=== PATIENT | female | born 1990 | race Caucasian/White ===

== ENCOUNTER 2020-03-03 11:27 | Outpatient (CLI) | payer BC, SELFPAY ==
--- NOTE | ~2020-03-03 | XR_ITS ---
EXAMINATION: XR hysterosalpingogram DATE: 03/03/2020 12:13 INDICATION: Infertility TECHNIQUE: Multiple fluoroscopic images were obtained during contrast infusion into the endometrial c anal of the uterus by the primary physician. Fluoroscopy exposure time was 0.3 minutes. A total of 6 images were obtained. FINDINGS: Flight Director image demonstrates a T-shaped IUD projecting over the upper pelvis which based on subsequent im ages is external to the uterus. The uterine cavity demonstrates normal morphology. The left fallopia n tube is normal in caliber and patent. The right fallopian tube appears irregularly dilated peripher al to the cornua but patent. There is normal spillage of contrast into the peritoneum on both sides. Comparison the endometrial extravasation of contrast with subsequent drainage via parametrial vessels and into the left gonadal vein. IMPRESSION: 1. Normal left fallopian tube and irregularly dilated but patent right fallopian tube with peritoneal spillage seen bilaterally. 2. IUD in the more cephalad pelvis external to the uterus. Reviewed, dictated and finalized at location A. IMPRESSION: 1. Normal left fallopian tube and irregularly dilated but patent right fallopia n tube with peritoneal spillage seen bilaterally. 2. IUD in the more cephalad pelvis external to the uterus.
== END 2020-03-03 11:28 | disposition home or self-care (01) ==
PROVIDERS: PCP Family Medicine; Visit Provider Obstetrics & Gynecology
DX: N97.9 Female infertility, unspecified (principal); Z97.5 Presence of (intrauterine) contraceptive device
CPT/HCPCS: 58340; 74740; Q9966

== ENCOUNTER 2020-03-10 05:57 | Outpatient (CLI) | payer BC, SELFPAY ==
[2020-03-10 16:38] LABS: SARS-CoV-2 RNA PCR Negative
== END 2020-03-10 05:58 | disposition home or self-care (01) ==
LOC: ANHCOVIDDT 05:57
PROVIDERS: PCP Family Medicine; Visit Provider Obstetrics & Gynecology
DX: Z01.818 Encounter for other preprocedural examination (principal); Z11.59 Encounter for screening for other viral diseases
CPT/HCPCS: 87635; C9803; U0003

== ENCOUNTER 2020-03-10 08:03 | Outpatient (CLI) | payer BC, SELFPAY | END 2020-03-10 08:04 | disposition home or self-care (01) | LOC: ANHSURGERY 08:04 | PROVIDERS: PCP Family Medicine; Visit Provider Obstetrics & Gynecology | DX: Z98.890 Other specified postprocedural states (principal) | CPT/HCPCS: 36415; 86850; 86900; 86901; 87635; C9803; U0003 ==

== ENCOUNTER 2020-03-12 00:42 | Day surgery (SDC) | payer BC, SELFPAY ==
[2020-03-08 15:30] VITALS: BMI 25.9
--- NOTE | 2020-03-10 06:47 | PM.IMHP ---
H&P: HPI History of Present Illness Chief complaint: lost IUD Narrative: Roseline Agudelo is a 29 year old female Who is admitted for laparoscopic removal of lost IUD. Many years ago she lost an IUD. She had 1 replaced in the meantime which was then later removed. During the hysterosalpingogram the x-ray noted the IUD to be in the abdomen behind the uterus. Risks and benefits of laparoscopy review Review of Systems Review of Systems: All systems reviewed & are unremarkable except as noted in HPI and below PMFSH Family History Family History Grandparent Diabetes mellitus Family history of malignant neoplasm of breast Social History Social History Smoking status: Never smoker Alcohol intake: never Meds Home Medications and Allergies Home Medications Medication Instructions Recorded Confirmed Type levocetirizine 5 mg tablet 5 mg PO DAILY #90 tablet 12/03/19 03/08/20 Rx B Complex-Vitamin B12 03/08/20 History estradiol-progesterone cap 03/08/20 History fish zay-mwrgj-6-vit C-vit E g PO 03/08/20 History letrozole [Femara] 2.5 mg PO TID 03/08/20 03/08/20 History magnesium 200 mg PO DAILY 03/08/20 03/08/20 History montelukast mg 03/08/20 History ytsmxprubfkt-tju-fsan-FA-vit K tablet PO 03/08/20 History [Adults Multivitamin] eay-wtk07-vvassri96-mcvj-zgdz ps-om3-dha cap PO 03/08/20 History [Concept DHA] Allergies Allergy/AdvReac Type Severity Reaction Status Date / Time mold Allergy Severe Anaphylactic Verified 03/08/20 15:35 Shock sumatriptan Allergy Intermediate hallucinati Verified 03/08/20 15:36 ons Exam Const: General: no acute distress Eyes: General: appearance normal, both eyes and all related structures Neck: Neck: supple and no JVD Thyroid: thyroid normal Resp: Effort & Inspection: normal respiratory effort Auscultation: clear to auscultation bilaterally Cardio: Rate: regular rate Rhythm: regular rhythm GI: Inspection: non-distended GI Palp: Yes Soft to palpation, No Tenderness to palpation present (GI) and No Guarding due to palpation present (GI) Auscultation: normal bowel sounds : General: Yes bladder normal to palpation External Female Exam: normal external appearance Speculum Exam - Vagina: normal vaginal discharge and No vaginal bleeding Speculum Exam - Cervix: nontender Bimanual exam- vagina & uterus: bladder normal to palpation and No Cervical tenderness present OB/external & speculum: No vaginal bleeding Skin: General skin exam: no rashes or lesions noted Extrem: General: normal to inspection and no edema Psych: Mental Status: mental status grossly normal Affect: normal affect Assessment and Plan Additional Plan impression: Lost IUD Plan: Laparoscopic retrieval of lost IUD
[2020-03-12] VITALS (10 sets, daily range): BP systolic 101–118; BP diastolic 70–80; PULSE 65–77; RESP 12–22; TEMP 36.1–37.1; O2SAT 97–100
--- NOTE | 2020-03-12 06:45 | WPDHPUPDATE1 ---
History and Physical Update Update Date/Time: 03/12/20 06:45 History and Physical has been reviewed, including an updated exam of the patient. There are NO changes in the patient's condition. Risks, benefits, and alternatives have been discussed and questions answered. Patient agrees to proceed with procedure.
[2020-03-12] MEDS: LACTATED RINGERS 1,000 ML 30 ML IV CONT (11:00)
--- NOTE | 2020-03-12 11:33 | WPDANESEPPF ---
Anes - Initial Pre Proc Eval Procedure: Operation Date: 03/12/20 12:00 Proposed Procedures p Laparoscopic Intrauterine Device Removal - Darci Nichols MD Date/Time: 03/12/20 11:33 Surgeon: Darci Nichols MD Pre Op Diagnosis: lost IUD Patient Data Age: 29 Gender: F Height: 5 ft 6 in Weight: 72.72 kg Last Vital Signs Temp 98.7 F 03/12/20 11:30 Pulse 65 03/12/20 11:30 Resp 20 03/12/20 11:30 BP 106/73 03/12/20 11:30 Pulse Ox 98 03/12/20 11:30 Allergies Allergy/AdvReac Type Severity Reaction Status Date / Time mold Allergy Severe Anaphylactic Verified 03/08/20 15:35 Shock sumatriptan Allergy Intermediate hallucinati Verified 03/08/20 15:36 ons Home Medications Medication Instructions Recorded Confirmed Type levocetirizine 5 mg tablet 5 mg PO DAILY #90 tablet 12/03/19 03/08/20 Rx B Complex-Vitamin B12 03/08/20 History estradiol-progesterone cap 03/08/20 History fish dpx-qfqqh-4-vit C-vit E g PO 03/08/20 History letrozole [Femara] 2.5 mg PO TID 03/08/20 03/08/20 History magnesium 200 mg PO DAILY 03/08/20 03/08/20 History montelukast mg 03/08/20 History edytwdxwdtov-yxq-tgud-FA-vit K tablet PO 03/08/20 History [Adults Multivitamin] nky-axd21-nfqyxir92-ucam-pjte ps-om3-dha cap PO 03/08/20 History [Concept DHA] hydrocodone-acetaminophen [[place]] 1 tablet PO Q4H PRN #20 tablet 03/12/20 Rx Patient hx anesthesia problems: none Family hx anesthesia problems: none PMFSH Past Medical History Medical History (Updated 03/12/20 @ 11:19 by Rajan Montgomery MD) Healthy adult Family History Family History Grandparent Diabetes mellitus Family history of malignant neoplasm of breast Social History Social History Smoking status: Never smoker Alcohol intake: never Anes - Eval Final PreProcedure Day of Procedure 03/12/20 11:33 Patient weight: normal Heart: regular rate and rhythm Lungs: clear to auscultation Airway: Mallampati scale class II Neurological: alert and oriented Last oral intake: >/= 8 hours ASA classification: I Emergent: no Anesthetic plan: proceed Anesthesia type and monitoring: general ETT and standard monitoring Informed Consent: The patient's anesthetic plan and its attendant risks and benefits were discussed with the patient/family/POA. Questions were solicited and answers provided to the satisfaction of the patient/family/POA.
[2020-03-12] MEDS: KETOROLAC 30 MG/ML VIAL (*BKC) IV PUSH (12:13)
--- NOTE | 2020-03-12 12:18 | PM.PROC ---
Procedure Note - Detailed Date of procedure: 03/12/20 Pre-op diagnosis: lost IUD Surgeon: Darci Nichols MD Postop diagnosis: Lost IUD Procedure: Laparoscopic retrieval of lost IUD Anesthesia: General endotracheal EBL: 5cc Findings: Lost IUD entangled in omentum. Normal-appearing ovaries tubes and uterus. Normal-appearing appendix Complications: None Description of procedure: Patient was prepped draped in the normal sterile fashion placed in the dorsal lithotomy position. Under excellent general endotracheal anesthesia weighted speculum was placed in posterior fornix of vagina. Anterior lip of the cervix was grasped with a single-tooth tenaculum. The 2 were attached to be used later for uterine manipulation. Bladder was emptied of clear urine. Gloves were changed. An infraumbilical incision made. Veress needle passed in the abdomen. Abdomen filled with CO2 gas [id number]. The 5mm trocar was advanced abdomen under direct visualization and no injury seen. Patient placed in Trendelenburg and a suprapubic incision made. The 5mm trocar advanced under direct visualization. The above findings were seen the IUD was intact cold and L omentum as expected. A left lower quadrant incision made the 5mm trocar advanced under direct visualization assuring no injury. The IUD was then teased away from the omentum with no blood loss. The remainder of the pelvis appeared within normal limits and photo documentation was undertaken. The lower sites removed after gas removed from the abdomen. The upper site removed. The incisions closed with 4 O Monocryl and glue. All sponge, needle, instrument counts were correct. Patient went to recovery in satisfactory condition. There were no immediate complications noted
== END 2020-03-12 15:00 | disposition home or self-care (01) ==
PROVIDERS: PCP Family Medicine; Visit Provider Obstetrics & Gynecology
PROC: (CPT 49320; principal; 2020-03-12 12:00)
DX: T83.32XA Displacement of intrauterine contraceptive device, initial encounter (principal); Y84.8 Other medical procedures as the cause of abnormal reaction of the patient, or of later complication, without mention of misadventure at the time of the procedure
CPT/HCPCS: 49329; A9270; J1100; J1885; J2250; J2405; J2704; J2710; J3010; J7120

== ENCOUNTER 2021-01-24 20:55 | Observation (INO) | payer OTHER, SELFPAY ==
[2021-01-24 21:20] VITALS: BP 115/82; PULSE 74; PULSE 80; PULSE 83; RESP 18; TEMP 36.8; O2SAT 98; O2SAT 99; BMI 28.6
[2021-01-24 21:25] VITALS: PULSE 75; O2SAT 98
[2021-01-24 21:30] VITALS: BP 114/78; PULSE 85; PULSE 88; O2SAT 99
[2021-01-24 21:35] VITALS: PULSE 87; O2SAT 99
[2021-01-24 21:40] VITALS: PULSE 91; O2SAT 99
[2021-01-24 21:45] VITALS: PULSE 76; O2SAT 98
--- NOTE | 2021-01-24 22:09 | OBADM ---
This patient, Roseline Agudelo, admitted to the OB room Labor/Delivery/Recovery 106 for observation. Patient/family oriented to hospital policies and general routines including ID bracelet, bed and alarms, visiting hours, pain management, procedures, bathroom and other care routines, personal items, smoking policy, room service/diet, and visiting hours. Patient/Family are encouraged to report perceived risks to care and to ask questions if they do not understand what they are told or what they should do.
--- NOTE | 2021-02-13 09:06 | PM.OBTRLD ---
OB - Triage/Final Diagnosis Visit Information Comments/Additional reasons for admission: I have assessed the risk for this patient, Roseline Agudelo, and determined that she would benefit from observation care. Final Diagnosis (1) Vaginal discharge during : Code(s): O26.899 - Other specified related conditions, unspecified trimester; N89.8 - Other specified noninflammatory disorders of vagina Status: Acute
== END 2021-01-24 22:00 | disposition home or self-care (01) ==
PROVIDERS: Admitting Provider Obstetrics & Gynecology; PCP Family Medicine; Visit Provider Obstetrics & Gynecology
DX: O26.892 Other specified pregnancy related conditions, second trimester (principal); N89.8 Other specified noninflammatory disorders of vagina; Z3A.14 14 weeks gestation of pregnancy
CPT/HCPCS: 84112; G0378; G0379

== ENCOUNTER 2021-02-04 07:07 | Inpatient (IN) | payer OTHER, SELFPAY ==
[2021-02-04] VITALS (58 sets, daily range): BP systolic 92–150; BP diastolic 57–98; PULSE 64–117; RESP 16; TEMP 36.6–36.8; O2SAT 97–100; BMI 28.6
--- NOTE | 2021-02-04 07:07 | LDADM ---
This patient, Roseline Agudelo, was admitted to Labor/Delivery/Recovery 103 on 02/04/21 at 07:07. Plans for labor, pain management and were discussed with patient. Patient/family oriented to hospital policies and general routines including ID bracelet, bed and alarms, visiting hours, pain management, procedures, bathroom and other care routines, personal items, smoking policy, room service/diet and guest tray routines, infant security routines, and visiting hours. Patient/Family are encouraged to report perceived risks to care and to ask questions if they do not understand what they are told or what they should do. See OBIX for further documentation.
--- NOTE | 2021-02-04 07:14 | PM.IMHP ---
H&P: HPI History of Present Illness Date/Time: 02/04/21 07:14 30-year-old 2 para 1011 whose last menstrual period was 05/07/2020, EDC is 02/11/2021, presents at 39 weeks gestation for induction labor. Baby has a left hydronephrosis is been followed stable. Geotechnical Engineering Technician will be made aware. The cervix is favorable. is of with gated. Chief Complaint: iol Review of Systems Review of Systems: All systems reviewed & are unremarkable except as noted in HPI and below PMFSH Past Medical History Medical History Chronic migraine w/o aura w/o status migrainosus, not intractable Healthy adult IUD mechanical complication lost IUD. laparoscopically removed from omentum. Martin's neuroma of left foot Recurrent maxillary sinusitis Family History Family History Grandparent Diabetes mellitus Family history of malignant neoplasm of breast Acute myocardial infarction Social History Social History Smoking status: Former smoker Alcohol intake: never Substance use: never Sexual Orientation (if Verbalized by the Patient): Straight or Heterosexual Spiritual care concerns: No Meds Home Medications and Allergies Home Medications Medication Instructions Recorded Confirmed Type Adults Multivitamin tablet PO 03/08/20 11/17/20 History fish jam-mukxj-4-vit C-vit E g PO 03/08/20 11/17/20 History magnesium 200 mg PO DAILY 03/08/20 11/17/20 History levocetirizine 5 mg tablet 5 mg PO DAILY #90 tablet 11/17/20 11/17/20 Rx montelukast 10 mg tablet See Rx Instructions .ROUTE 11/17/20 11/17/20 Rx .COMPLEX #90 tablet Allergies Allergy/AdvReac Type Severity Reaction Status Date / Time mold Allergy Severe Anaphylactic Verified 11/17/20 14:54 Shock sumatriptan AdvReac hallucinati Verified 11/17/20 15:09 ons Exam Const: General: no acute distress Eyes: General: appearance normal, both eyes and all related structures Neck: Neck: supple and no JVD Thyroid: thyroid normal Resp: Effort & Inspection: normal respiratory effort Auscultation: clear to auscultation bilaterally Cardio: Rate: regular rate Rhythm: regular rhythm GI: Inspection: non-distended GI Palp: Yes Soft to palpation, No Tenderness to palpation present (GI) and No Guarding due to palpation present (GI) Auscultation: normal bowel sounds : External Female Exam: normal external appearance Speculum Exam - Vagina: normal appearance of the vagina Speculum Exam - Cervix: normal appearance of the cervix ( Cervix 4cm. heart tones reassuring) Skin: General skin exam: no rashes or lesions noted Extrem: General: normal to inspection and no edema Psych: Mental Status: mental status grossly normal Affect: normal affect Assessment and Plan Additional Plan impression: Term with favorable cervix Plan: Menopausal labor. Spontaneous vaginal of expected. Pediatricians we made aware of pyelectasis
--- NOTE | 2021-02-04 07:17 | WPDHPUPDATE1 ---
History and Physical Update Update Date/Time: 02/04/21 07:17 History and Physical has been reviewed, including an updated exam of the patient. There are NO changes in the patient's condition. Risks, benefits, and alternatives have been discussed and questions answered. Patient agrees to proceed with procedure.
[2021-02-04] MEDS: LACTATED RINGERS 1,000 ML 125 ML IV CONT ×2 (07:46→08:32)
[2021-02-04] MEDS: OXYTOCIN 30 UNITS/NS 500 ML 30 UNITS/500 ML BAG IV CONT (07:47)
[2021-02-04 07:54] LABS: Basophils Percent Auto 0.3 % (0.2-1.2); Eosinophils Absolute Auto 0.1 K/mm3 (0-0.3); Eosinophils Percent Auto 0.8 % (0-4.4); Hematocrit 35.7 % (37.0-47.0); Hemoglobin 11.8 g/dL (12.0-15.0); Immature Granulocyte Absolute 0.02 K/mm3 (0.00-0.031); Immature Granulocyte Percent A 0.3 % (0-0.5); Immature Platelet Fraction Pct 19.5 % (0.9-11.2); Lymphocytes Percent Auto 23.2 % (18.3-44.2); Mean Corpuscular HGB Conc 33.1 g/dl (32-36); Mean Corpuscular Hemoglobin 26.7 pg (26-34); Mean Corpuscular Volume 80.8 fl (80-100); Mean Platelet Volume 14.2 fl (7.4-10.4); Monocytes Absolute Auto 0.4 K/mm3 (0.1-0.6); Monocytes Percent Auto 5.8 % (2.6-8.5); Neutrophils Absolute Auto 4.2 K/mm3 (1.3-6.7); Neutrophils Percent Auto 69.6 % (45.5-73.1); Platelet Count Result 129 k/mm3 (150-375); Red Blood Count 4.42 M/mm3 (4.2-5.4); Red Cell Distribution Width 12.2 % (11.5-14.5)
--- NOTE | 2021-02-04 08:44 | WPDANESEPP ---
Anes - Eval Pre Procedure Procedure: Labor Epidural Date/Time: 02/04/21 08:44 Surgeon: Will Preop Diagnosis: Labor Pain Pre Op Diagnosis: induction of labor Patient Data Age: 30 Gender: F Height: 5 ft 5 in Weight: 78 kg Last Vital Signs Temp 36.6 C 02/04/21 07:24 Pulse 88 02/04/21 08:42 BP 97/66 L 02/04/21 08:42 Pulse Ox 97 02/04/21 08:42 Allergies Allergy/AdvReac Type Severity Reaction Status Date / Time mold Allergy Severe Anaphylactic Verified 02/04/21 07:26 Shock sumatriptan AdvReac hallucinati Verified 02/04/21 07:26 ons Home Medications Medication Instructions Recorded Confirmed Type Adults Multivitamin tablet PO 03/08/20 11/17/20 History fish zgb-hjtzj-8-vit C-vit E g PO 03/08/20 11/17/20 History magnesium 200 mg PO DAILY 03/08/20 02/04/21 History levocetirizine 5 mg tablet 5 mg PO DAILY #90 tablet 11/17/20 02/04/21 Rx montelukast 10 mg tablet See Rx Instructions .ROUTE 11/17/20 02/04/21 Rx .COMPLEX #90 tablet Laboratory Tests 02/04/21 02/04/21 07:43 07:43 WBC 6.0 K/mm3 K/mm3 (4.5-10.0) RBC 4.42 M/mm3 M/mm3 (4.2-5.4) Hgb 11.8 g/dL L g/dL (12.0-15.0) Hct 35.7 % L % (37.0-47.0) MCV 80.8 fl fl (80-100) MCH 26.7 pg pg (26-34) MCHC 33.1 g/dl g/dl (32-36) RDW 12.2 % % (11.5-14.5) Plt Count 129 k/mm3 L k/mm3 (150-375) MPV 14.2 fl H fl (7.4-10.4) Immature Gran % (Auto) 0.3 % % (0-0.5) Neut % (Auto) 69.6 % % (45.5-73.1) Lymph % (Auto) 23.2 % % (18.3-44.2) [place] % (Auto) 5.8 % % (2.6-8.5) Eos % (Auto) 0.8 % % (0-4.4) Baso % (Auto) 0.3 % % (0.2-1.2) Lymph # (Auto) 1.40 K/mm3 K/mm3 (0.9-3.2) [place] # (Auto) 0.4 K/mm3 K/mm3 (0.1-0.6) Eos # (Auto) 0.1 K/mm3 K/mm3 (0-0.3) Baso # (Auto) 0.0 K/mm3 K/mm3 (0.0-0.1) Abs Immat Gran (auto) 0.02 K/mm3 K/mm3 (0.00-0.031) Absolute Neuts (auto) 4.2 K/mm3 K/mm3 (1.3-6.7) Absolute Nucleated RBC 0.0 K/mm3 K/mm3 (0.0-0.012) Nucleated RBC % 0.0 % % (0.0-0.2) % Immature Plt Fraction 19.5 % H % (0.9-11.2) RPR Pending : gestational age (ALEX 02/11/21, ) Patient hx anesthesia problems: none Family hx anesthesia problems: none [facility] Past Medical History Medical History Chronic migraine w/o aura w/o status migrainosus, not intractable Healthy adult IUD mechanical complication lost IUD. laparoscopically removed from omentum. Martin's neuroma of left foot Recurrent maxillary sinusitis Family History Family History Grandparent Diabetes mellitus Family history of malignant neoplasm of breast Acute myocardial infarction Social History Social History Smoking status: Never smoker Alcohol intake: never Substance use: never Sexual Orientation (if Verbalized by the Patient): Straight or Heterosexual Spiritual care concerns: No Exam Day of Procedure 02/04/21 08:44 Patient weight: normal Heart: regular rate and rhythm Lungs: normal air movement Airway: Mallampati scale class II Neurological: alert and oriented
--- NOTE | 2021-02-04 13:00 | PM.OBPNVD ---
OB - PN: Subj Subjective Date/time seen: 02/04/21 13:00 heart tones reassuring. Last cervical check per nurse the cervix was 5.5cm. Epidural is in and working OB - PN: Obj Data Labs CBC & Chem 7: 02/04/21 07:43 Labs: Laboratory Results - last 24 hr 02/04/21 02/04/21 07:43 07:43 WBC 6.0 RBC 4.42 Hgb 11.8 L Hct 35.7 L MCV 80.8 MCH 26.7 MCHC 33.1 RDW 12.2 Plt Count 129 L MPV 14.2 H Immature Gran % (Auto) 0.3 Neut % (Auto) 69.6 Lymph % (Auto) 23.2 [place] % (Auto) 5.8 Eos % (Auto) 0.8 Baso % (Auto) 0.3 Lymph # (Auto) 1.40 [place] # (Auto) 0.4 Eos # (Auto) 0.1 Baso # (Auto) 0.0 Abs Immat Gran (auto) 0.02 Absolute Neuts (auto) 4.2 Absolute Nucleated RBC 0.0 Nucleated RBC % 0.0 % Immature Plt Fraction 19.5 H Blood Type A Positive Antibody Screen Negative OB - PN A/P Time Spent With Patient Time: Total time spent is greater than 50% in coordination of care (as documented) at patient's floor/unit and/or counseling patient:
--- NOTE | 2021-02-04 13:12 | PM.OBPNVD ---
OB - PN: Subj Subjective Date/time seen: 02/04/21 13:12 cx 7 fhts reassuring OB - PN: Obj Data Labs CBC & Chem 7: 02/04/21 07:43 Labs: Laboratory Results - last 24 hr 02/04/21 02/04/21 07:43 07:43 WBC 6.0 RBC 4.42 Hgb 11.8 L Hct 35.7 L MCV 80.8 MCH 26.7 MCHC 33.1 RDW 12.2 Plt Count 129 L MPV 14.2 H Immature Gran % (Auto) 0.3 Neut % (Auto) 69.6 Lymph % (Auto) 23.2 [place] % (Auto) 5.8 Eos % (Auto) 0.8 Baso % (Auto) 0.3 Lymph # (Auto) 1.40 [place] # (Auto) 0.4 Eos # (Auto) 0.1 Baso # (Auto) 0.0 Abs Immat Gran (auto) 0.02 Absolute Neuts (auto) 4.2 Absolute Nucleated RBC 0.0 Nucleated RBC % 0.0 % Immature Plt Fraction 19.5 H Blood Type A Positive Antibody Screen Negative OB - PN A/P Time Spent With Patient Time: Total time spent is greater than 50% in coordination of care (as documented) at patient's floor/unit and/or counseling patient:
[2021-02-04] MEDS: ONDANSETRON INJ 4 MG/2 ML VIAL IV PUSH (13:44)
--- NOTE | 2021-02-04 14:25 | PM.OBPRVD ---
OB - Delivery Note Procedure Delivery date: 02/04/21 Intrapartal events: None Induction method: AROM Delivery augmentation: pitocin Delivery monitor: external FHT Route of delivery: Episiotomy description: None Laceration Description: None Specimen: No Quantitative Blood Loss (ml): 58 Anesthesia type: Epidural Disposition: floor Baby Date of : 02/04/21 Time of : 13:53 Weeks of gestation at delivery: 39 gender: Male Weight (pounds): 7 Weight (ounces): 3 presentation: vertex position: Right Occiput Anterior Placenta delivery description: Spontaneous cord vessel description: 3 Vessels and Nuchal Cord score one minute: 8 score five minutes: 9
[2021-02-04] MEDS: OXYTOCIN 30 UNITS/NS 500 ML 30 UNITS/500 ML BAG 125 UNITS IV CONT (14:37)
[2021-02-04] MEDS: IBUPROFEN 600 MG TABLET PO (15:04)
[2021-02-04] MEDS: BENZOCAINE 20% AER SPR (*SP) 56 GM CAN 1 SPRAY TOPICAL (17:31)
[2021-02-04] MEDS: WITCH HAZEL 40 PADS 1 PAD TOPICAL (17:31)
[2021-02-04] MEDS: ACETAMINOPHEN 325 MG TABLET 650 MG PO (20:11)
[2021-02-05] VITALS (7 sets, daily range): BP systolic 109–125; BP diastolic 61–77; PULSE 62–97; RESP 12–16; TEMP 36.4–36.6
[2021-02-05] MEDS: IBUPROFEN 600 MG TABLET PO ×3 (01:05→13:44)
[2021-02-05 05:19] LABS: Hematocrit 34.5 % (37.0-47.0); Hemoglobin 11.1 g/dL (12.0-15.0)
[2021-02-05] MEDS: MULTIVIT/MIN/PREN/FOL AC/IRON TABLET 1 TAB PO (08:28)
--- NOTE | 2021-02-05 08:43 | PM.OBDSVD ---
DS: Admitting Diagnosis Admitting Diagnosis Admitting Diagnosis: intrauterine at term OB - DS: Summary OB Procedures : None OB Procedures Intrapartum: Spontaneous Vag Delivery OB Procedures: : None Status at Discharge Functional status at discharge: independent ambulation Overall status at discharge: patient is back to baseline Time Spent with Patient Time attestation: Total time spent providing and/or coordinating discharge services: Time spent: Less than 30 minutes Exam Const: General: comfortable and no acute distress Resp: Effort & Inspection: normal respiratory effort Auscultation: clear to auscultation bilaterally Cardio: Rate: regular rate GI: GI Palp: Yes Soft to palpation Auscultation: normal bowel sounds Other: Fundus firm below umbilicus Psych: Appearance: grossly normal Mental Status: mental status grossly normal Affect: normal affect DS: Data Data Completed and Pending Labs on day of discharge: Labs from last 24 hours 02/05/21 02/04/21 04:30 07:43 Hgb 11.1 L Hct 34.5 L Blood Type A Positive Antibody Screen Negative Discharge Plan Discharge Discharging Clinician: Augusto Hill Patient Disposition: Home, Self-Care Activity: as tolerated and pelvic rest Diet: regular Patient Instructions: Antibiotic Form, Vaginal Delivery (DC) Stand Alone Forms: General Discharge Information Follow-up/Referrals: Darci Nichols MD [Physician] - 4 Weeks Discharge Medications: New ibuprofen 600 mg Tablet 600 mg PO Q6H PRN (Reason: Cramping) Qty: 30 RF: 0 acetaminophen [[place]ap (acetaminophen)] 325 mg Tablet 650 mg PO Q6H PRN (Reason: Mild Pain (1-3) Or Headache) Qty: 30 RF: 0 Continued levocetirizine [Xyzal] 5 mg tablet 5 mg PO DAILY Qty: 90 RF: 3 montelukast 10 mg tablet See Rx Instructions .ROUTE .COMPLEX Qty: 90 RF: 3 fish fim-hdxze-3-vit C-vit E 2,000-650-12 mg/2.5 gram Emulsion In Packet PO RF: 0 magnesium 200 mg Tablet 200 mg PO DAILY RF: 0 Adults Multivitamin 18 mg iron-400 mcg-25 mcg Tablet PO RF: 0 Date of admission: 02/04/21 07:07 Primary Care Provider: Priyanka Toney Admitting Provider: Darci Nichols Attending physician on admission: Darci Nichols Condition: Stable
[2021-02-05] MEDS: ACETAMINOPHEN 325 MG TABLET 650 MG PO (13:45)
[2021-02-07 07:41] LABS: Rapid Plasma Reagin Non-Reactive (NonReactive)
[2021-02-07 09:07] VITALS: BP 126/90; PULSE 75; RESP 16; TEMP 37; O2SAT 99
== END 2021-02-05 15:48 | disposition home or self-care (01) | DRG 807 ==
LOC: ANHOBPP 02-05 14:16 → ANHLDR 02-08 09:53 → ANHOBPP 02-08 09:53
PROVIDERS: Admitting Provider Obstetrics & Gynecology; PCP Family Medicine; Visit Provider Student in an Organized Health Care Education/Training Program
DX: O69.81X0 Labor and delivery complicated by cord around neck, without compression, not applicable or unspecified (principal); Z37.0 Single live birth; Z3A.39 39 weeks gestation of pregnancy
CPT/HCPCS: 36415; 85014; 85018; 85025; 85055; 86592; 86850; 86900; 86901; A9270; J2405; J2590; J7120

== ENCOUNTER → 2021-04-29 09:47 | Outpatient (CLI) | payer OTHER, SELFPAY ==
--- NOTE | ~2021-04-29 | MR_ITS ---
EXAMINATION: MR brain/brain stem wo con DATE: 04/29/2021 10:16 INDICATION: Headache, unspecified. TECHNIQUE: Magnetic resonance imaging (MRI) of the brain and brainstem was performed without intraven ous contrast. Sequences included sagittal and axial T1-weighted FSE, axial diffusion-weighted FS EPI, axial T2*-weighted GRE, axial T2-weighted FLAIR Propeller, and axial T2-weighted Propeller. Apparent diffusion coefficient (ADC) maps were created. COMPARISON: None. FINDINGS: There is no intracranial hemorrhage, acute infarction, or abnormal intracranial mass lesion . The ventricles are normal in size. The paranasal sinuses are clear. The orbits are normal. The mast oid air cells are normal. IMPRESSION: 1. Normal brain. Reviewed, dictated and finalized at location A. IMPRESSION: 1. Normal brain.
== END ==
PROVIDERS: PCP Family Medicine; Visit Provider Family Medicine
DX: R51.9 Headache, unspecified (principal)
CPT/HCPCS: 70551

== ENCOUNTER 2021-08-12 15:42 | Outpatient (RCR) | payer OTHER, SELFPAY | END 2021-11-10 23:59 | disposition home or self-care (01) | LOC: ANHLAB 15:42 | PROVIDERS: PCP Family Medicine; Visit Provider Obstetrics & Gynecology | DX: O36.80X0 Pregnancy with inconclusive fetal viability, not applicable or unspecified (principal); Z3A.00 Weeks of gestation of pregnancy not specified | CPT/HCPCS: 36415; 84702 ==

== ENCOUNTER → 2021-08-16 10:07 | Outpatient (CLI) | payer OTHER, SELFPAY ==
[2021-08-17 19:26] LABS: SARS-CoV-2 RNA PCR Negative
== END ==
PROVIDERS: PCP Family Medicine; Visit Provider Obstetrics & Gynecology
DX: Z01.812 Encounter for preprocedural laboratory examination (principal); Z20.822 Contact with and (suspected) exposure to COVID-19
CPT/HCPCS: C9803; U0003; U0005

== ENCOUNTER 2021-08-16 10:38 | Outpatient (CLI) | payer OTHER, SELFPAY ==
[2021-08-16 11:20] LABS: Hematocrit 38.1 % (37.0-47.0); Hemoglobin 12.5 g/dL (12.0-15.0)
== END 2021-08-16 10:39 | disposition home or self-care (01) ==
LOC: ANHSURGERY 10:43
PROVIDERS: PCP Family Medicine; Visit Provider Obstetrics & Gynecology
DX: Z01.812 Encounter for preprocedural laboratory examination (principal); O02.1 Missed abortion
CPT/HCPCS: 36415; 85014; 85018; 86900; 86901

== ENCOUNTER 2021-08-19 00:16 | Day surgery (SDC) | payer OTHER, SELFPAY ==
[2021-08-15 14:47] VITALS: BMI 29.0
--- NOTE | 2021-08-17 12:37 | P.HP_ITS ---
H&P: HPI History of Present Illness Date/Time: 07/30 31-year-old multiparous admitted with first-trimester incomplete AB. She has an ultrasound proving an abnormal and has been bleeding. Risks and benefits reviewed 12:37 Chief Complaint: first-trimester incomplete AB Review of Systems Review of Systems: All systems reviewed & are unremarkable except as noted in HPI and below PMFSH Past Medical History Medical History Chronic migraine w/o aura w/o status migrainosus, not intractable Healthy adult IUD mechanical complication lost IUD. laparoscopically removed from omentum. Martin's neuroma of left foot Recurrent maxillary sinusitis Family History Family History Grandparent Diabetes mellitus Family history of malignant neoplasm of breast Acute myocardial infarction Social History Social History Smoking status: Never smoker Alcohol intake: never Substance use: never Sexual Orientation (if Verbalized by the Patient): Straight or Heterosexual Spiritual care concerns: No Meds Home Medications and Allergies Home Medications Medication Instructions Recorded Confirmed Type Adults Multivitamin 1 tablet PO DAILY 03/08/20 08/15/21 History fish ewq-skwel-5-vit C-vit E 2.5 g PO DAILY 03/08/20 08/15/21 History magnesium 200 mg PO DAILY 03/08/20 08/15/21 History levocetirizine 5 mg tablet 5 mg PO DAILY #90 tablet 11/17/20 08/15/21 Rx montelukast 10 mg tablet See Rx Instructions .ROUTE 11/17/20 08/15/21 Rx .COMPLEX #90 tablet ibuprofen 600 mg PO Q6H PRN #30 tablet 02/05/21 08/15/21 Rx Allergies Allergy/AdvReac Type Severity Reaction Status Date / Time mold Allergy Severe Anaphylactic Verified 08/15/21 14:45 Shock Exam Const: General: no acute distress Eyes: General: appearance normal, both eyes and all related structures Neck: Neck: supple and no JVD Thyroid: thyroid normal Resp: Effort & Inspection: normal respiratory effort Auscultation: clear to auscultation bilaterally Cardio: Rate: regular rate Rhythm: regular rhythm GI: Inspection: non-distended GI Palp: Yes Soft to palpation, No Tenderness to palpation present (GI) and No Guarding due to palpation present (GI) Auscultation: normal bowel sounds : External Female Exam: normal external appearance Speculum Exam - Vagin a: normal appearance of the vagina and vaginal bleeding Speculum Exam - Cervix: normal appearance of the cervix Bimanual exam- vagina & uterus: enlarged Bimanual Exam- Adnexa, other: No adnexal tenderness Skin: General skin exam: no rashes or lesions noted Extrem: General: normal to inspection and no edema Psych: Mental Status: mental status grossly normal Affect: normal affect Assessment and Plan Additional Plan impression incomplete AB first-trimester plan: Suction dilatation curettage
--- NOTE | 2021-08-19 07:19 | WPDHPUPDATE1 ---
History and Physical Update Update Date/Time: 08/19/21 07:19 History and Physical has been reviewed, including an updated exam of the patient. There are NO changes in the patient's condition. Risks, benefits, and alternatives have been discussed and questions answered. Patient agrees to proceed with procedure.
--- NOTE | 2021-08-19 10:12 | WPDANESEPPF ---
Anes - Initial Pre Proc Eval Procedure: Operation Date: 08/19/21 11:30 Proposed Procedures p Suction Dilation and Curettage - Darci Nichols MD Date/Time: 08/19/21 10:12 Surgeon: Darci Nichols MD Pre Op Diagnosis: missed ab Patient Data Age: 31 Gender: F Height: 1.68 m Weight: 81.8 kg Allergies Allergy/AdvReac Type Severity Reaction Status Date / Time mold Allergy Severe Anaphylactic Verified 08/19/21 10:07 Shock Home Medications Medication Instructions Recorded Confirmed Type Adults Multivitamin 1 tablet PO DAILY 03/08/20 08/15/21 History fish wiq-oktvi-4-vit C-vit E 2.5 g PO DAILY 03/08/20 08/15/21 History magnesium 200 mg PO DAILY 03/08/20 08/15/21 History levocetirizine 5 mg tablet 5 mg PO DAILY #90 tablet 11/17/20 08/15/21 Rx montelukast 10 mg tablet See Rx Instructions .ROUTE 11/17/20 08/15/21 Rx .COMPLEX #90 tablet ibuprofen 600 mg PO Q6H PRN #30 tablet 02/05/21 08/15/21 Rx hydrocodone-acetaminophen 1 tablet PO Q4H PRN #20 tablet 08/19/21 Rx Patient hx anesthesia problems: none Family hx anesthesia problems: none Results Review: All pre-operative results and documents have been reviewed as part of the pre-operative evaluation. [facility], [facility] Past Medical History Medical History Chronic migraine w/o aura w/o status migrainosus, not intractable Healthy adult IUD mechanical complication lost IUD. laparoscopically removed from omentum. Miscarriage within last 12 months Martin's neuroma of left foot Recurrent maxillary sinusitis Family History Family History Grandparent Diabetes mellitus Family history of malignant neoplasm of breast Acute myocardial infarction Social History Social History Smoking status: Never smoker Alcohol intake: never Substance use: never Living arrangements: with family Sexual Orientation (if Verbalized by the Patient): Straight or Heterosexual Spiritual care concerns: No Anes - Eval Final PreProcedure Day of Procedure 08/19/21 10:12 Patient weight: overweight Heart: regular rate and rhythm Lungs: clear to auscultation Airway: Mallampati scale class 1 Neurological: alert and oriented Last oral intake: >/= 8 hours ASA classification: II Emergent: no Anesthetic plan: proceed Anesthesia type and monitoring: general GIVS and standard monitoring Results Review: All pre-operative results and documents have been reviewed as part of the pre-operative evaluation. Informed Consent: The patient's anesthetic plan and its attendant risks and benefits were discussed with the patient/family/POA. Questions were solicited and answers provided to the satisfaction of the patient/family/POA.
[2021-08-19 10:49] VITALS: BMI 29.2
[2021-08-19 10:54] VITALS: BP 117/86; PULSE 75; RESP 14; TEMP 36.8; O2SAT 100
[2021-08-19] MEDS: LACTATED RINGERS 1,000 ML 30 ML IV CONT (10:55)
[2021-08-19] MEDS: ACETAMINOPHEN 500 MG TABLET 1000 MG PO (10:56)
[2021-08-19] MEDS: LIDOCAINE HCL 1% PF 30 ML VIAL 10 ML INFILTRATE (11:56)
--- NOTE | 2021-08-19 12:02 | W.PM.PROC2 ---
Procedure Note - Detailed Date of Procedure 08/19/21 Pre-op Diagnosis missed ab Post-op Diagnosis same Procedure Performed Suction dilatation curettage Surgeon Darci Nichols MD Anesthesia MAC and local Indications This is a 31-year-old multiparous with an incomplete AB in 1st trimester Findings Cervix that was dilated. Uterus sounded to 10cm. Minimal placental like tissue present Description of Procedure The patient was prepped draped in the normal sterile fashion and placed in the dorsal lithotomy position. Under excellent IV sedation weighted speculum was placed in posterior fornix of vagina. Anterior lip of the cervix grasped with a single-tooth tenaculum. 10cc of 1% xylocaine anesthesia placed in 2.5cc increments at 2, 4, 8, 10:00 a.m. of the cervix. The uterus sounded to 10cm. Serial dilatation was performed followed by passes the 10. Suction curette removing a moderate to small amount of tissue. A good grating sound was heard in the instruments were removed. The patient was awakened and went to recovery in satisfactory condition. All sponge, needle, instrument counts were correct. Estimated Blood Loss 25 Drains No Packing No Pathology yes Complications No immediate complications Condition stable Disposition PACU
[2021-08-19 12:11] VITALS: BP 104/63; PULSE 74; RESP 16; O2SAT 95
--- NOTE | 2021-08-19 12:11 | SUR.OPER ---
Specimen sent with ELADIO Colvin at 1209 to Pathology for Chromosome Analysis.
--- NOTE | 2021-08-19 12:15 | SUR.OPER ---
Specimen received by Eliazar in Pathology per Vinicius, PCT
--- NOTE | 2021-08-19 12:27 | SUR.PHASEII ---
Patient is A pos blood type. No Rhogam needed.
[2021-08-19 12:40] VITALS: BP 111/79; PULSE 71
--- NOTE | 2021-08-19 12:45 | SUR.PHASEII ---
RN called Dr. Nichols in regards to prescription.
[2021-08-19 13:00] VITALS: BP 109/71; PULSE 79
--- NOTE | 2021-08-19 14:05 | SUR.PHASEII ---
1250: Patient's had prescription for [place] that was given to him in pre-op.
== END 2021-08-19 13:10 | disposition home or self-care (01) ==
PROVIDERS: PCP Family Medicine; Visit Provider Obstetrics & Gynecology
PROC: (CPT 59820; principal; 2021-08-19 11:30)
DX: O02.1 Missed abortion (principal)
CPT/HCPCS: 59820; 36415; 85014; 85018; 86900; 86901; 88305; A9270; C9803; J1100; J1885; J2250; J2405; J2704; J3010; J7120; U0003; U0005

== ENCOUNTER 2022-04-11 08:20 | Outpatient (RCR) | payer OTHER, SELFPAY ==
[2022-04-11 09:07] LABS: Basophils Percent Auto 0.4 % (0.2-1.2); Eosinophils Absolute Auto 0.1 K/mm3 (0-0.3); Eosinophils Percent Auto 1.4 % (0-4.4); Hematocrit 35.2 % (37.0-47.0); Hemoglobin 11.7 g/dL (12.0-15.0); Immature Granulocyte Absolute 0.02 K/mm3 (0.00-0.031); Immature Granulocyte Percent A 0.3 % (0-0.5); Lymphocytes Absolute Auto 1.41 K/mm3 (0.9-3.2); Mean Corpuscular HGB Conc 33.2 g/dl (32-36); Mean Corpuscular Hemoglobin 27.5 pg (26-34); Mean Corpuscular Volume 82.8 fl (80-100); Mean Platelet Volume 12.9 fl (7.4-10.4); Monocytes Absolute Auto 0.4 K/mm3 (0.1-0.6); Monocytes Percent Auto 5.7 % (2.6-8.5); Neutrophils Absolute Auto 5.1 K/mm3 (1.3-6.7); Neutrophils Percent Auto 72.2 % (45.5-73.1); Platelet Count Result 130 k/mm3 (150-375); Red Blood Count 4.25 M/mm3 (4.2-5.4); Red Cell Distribution Width 12.9 % (11.5-14.5); White Blood Count 7.1 K/mm3 (4.5-10.0)
[2022-04-11 09:21] LABS: Alanine Aminotransferase 11 U/L (6-35); Albumin Level 3.6 g/dL (3.5-5.1); Alkaline Phosphatase 82 U/L (38-126); Anion Gap 3 mmol/L (8-16); Aspartate Amino Transferase 16 U/L (14-36); Bilirubin,Total 0.3 mg/dL (0.2-1.3); Blood Urea Nitrogen 4 mg/dL (7-17); Calcium 8.5 mg/dL (8.4-10.2); Carbon Dioxide 22 mmol/L (22-30); Chloride 109 mmol/L (98-107); Estimated Glomerular Filt Rate > 60; Glucose 81 mg/dL (65-110); Sodium 134 mmol/L (137-145)
[2022-04-11 10:16] LABS: Appearance Urine Clear (Clear); Bilirubin Urine Negative (Negative); Blood Urine Negative (Negative); Color Urine Yellow (Yellow); Glucose Urine UA Negative (Negative); Ketones Urine Negative (Negative); Leukocyte Esterase Ur 1+ LEU/UL (Negative); Nitrate Urine Negative (Negative); Protein Urine Negative (Negative); Specific Grav Ur 1.015 (1.001-1.035); Urobilinogen Urine 0.2 mg/dL (<2.0)
[2022-04-11 10:21] LABS: Squamous Epithelial Cell Urine Moderate /hpf (Few); WBC Urine 0-3 /hpf
[2022-04-11 10:23] LABS: Add Urine Microscopic? YES
[2022-04-11 10:31] VITALS: BP 111/72; PULSE 91
== END 2022-06-09 14:51 | disposition home or self-care (01) ==
LOC: ANHOBOP 08:20
PROVIDERS: PCP Family Medicine; Visit Provider Obstetrics & Gynecology
DX: O36.8130 Decreased fetal movements, third trimester, not applicable or unspecified (principal); Z3A.33 33 weeks gestation of pregnancy
CPT/HCPCS: 36415; 59025; 80053; 81001; 85025

== ENCOUNTER 2022-05-24 05:04 | Inpatient (IN) | payer OTHER, SELFPAY ==
[2022-05-24] VITALS (178 sets, daily range): BP systolic 94–137; BP diastolic 55–94; PULSE 47–113; RESP 16; TEMP 36.1–37.2; O2SAT 84–100; BMI 29.7
[2022-05-24 05:41] LABS: Basophils Percent Auto 0.4 % (0.2-1.2); Eosinophils Absolute Auto 0.1 K/mm3 (0-0.3); Eosinophils Percent Auto 1.6 % (0-4.4); Hematocrit 37.7 % (37.0-47.0); Hemoglobin 12.1 g/dL (12.0-15.0); Immature Granulocyte Absolute 0.02 K/mm3 (0.00-0.031); Immature Granulocyte Percent A 0.3 % (0-0.5); Immature Platelet Fraction Pct 18.7 % (0.9-11.2); Lymphocytes Absolute Auto 1.56 K/mm3 (0.9-3.2); Mean Corpuscular HGB Conc 32.1 g/dl (32-36); Mean Corpuscular Hemoglobin 26.8 pg (26-34); Mean Corpuscular Volume 83.6 fl (80-100); Mean Platelet Volume 13.8 fl (7.4-10.4); Monocytes Absolute Auto 0.4 K/mm3 (0.1-0.6); Monocytes Percent Auto 5.6 % (2.6-8.5); Neutrophils Absolute Auto 4.7 K/mm3 (1.3-6.7); Neutrophils Percent Auto 69.1 % (45.5-73.1); Platelet Count Result 134 k/mm3 (150-375); Red Blood Count 4.51 M/mm3 (4.2-5.4); White Blood Count 6.8 K/mm3 (4.5-10.0)
--- NOTE | 2022-05-24 05:50 | LDADM ---
This patient, Roseline Agudelo, was admitted to Labor/Delivery/Recovery 103 on 05/24/22 at 05:04. Plans for labor, pain management and were discussed with patient. Patient/family oriented to hospital policies and general routines including ID bracelet, bed and alarms, visiting hours, pain management, procedures, bathroom and other care routines, personal items, smoking policy, room service/diet and guest tray routines, infant security routines, and visiting hours. Patient/Family are encouraged to report perceived risks to care and to ask questions if they do not understand what they are told or what they should do. See OBIX for further documentation.
[2022-05-24] MEDS: LACTATED RINGERS 1,000 ML 125 ML IV CONT ×2 (06:08→15:02)
[2022-05-24] MEDS: OXYTOCIN 30 UNITS/NS 500 ML 30 UNITS/500 ML BAG IV CONT (06:08)
[2022-05-24 06:31] LABS: HIV 1/2 Ab P24 Ag Result Negative (Negative)
--- NOTE | 2022-05-24 06:33 | PM.IMHP ---
H&P: HPI History of Present Illness Date/Time: 05/24/22 06:33 Chief Complaint: Induction of labor at term Narrative: 31-year-old 5 para 2021 whose last menstrual period is unknown, EDC is 05/29/2022, confirmed by 8 week ultrasound presents at 39 half weeks gestation for induction of labor. has been uncomplicated. Cervix is favorable and she is negative for group B strep PMFSH Past Medical History Medical History Chronic migraine w/o aura w/o status migrainosus, not intractable Healthy adult IUD mechanical complication lost IUD. laparoscopically removed from omentum. Miscarriage within last 12 months Martin's neuroma of left foot Recurrent maxillary sinusitis Family History Family History Grandparent Diabetes mellitus Family history of malignant neoplasm of breast Acute myocardial infarction Social History Social History Smoking status: Never smoker Alcohol intake: never Substance use: never Sexual Orientation (if Verbalized by the Patient): Straight or Heterosexual Spiritual care concerns: No Meds Home Medications and Allergies Home Medications Medication Instructions Recorded Confirmed Type magnesium 200 mg tablet 200 mg PO DAILY 03/08/20 05/24/22 History albuterol sulfate 90 mcg/actuation 2 inh inhalation Q4H PRN shortness 01/03/22 05/24/22 Rx aerosol inhaler of breath or wheezing #8.5 grams levocetirizine 5 mg tablet See Rx Instructions .Route 01/03/22 05/24/22 Rx .COMPLEX #90 tabs cholecalciferol (vitamin D3) 50 50 mcg PO DAILY 05/05/22 05/05/22 History mcg (2,000 unit) capsule (Vitamin D3) prenat.vits,tanya,esl-ccqx-zcref 1 tablet PO DAILY 05/05/22 05/05/22 History montelukast 10 mg tablet See Rx Instructions .Route 05/08/22 05/24/22 Rx .COMPLEX #90 tabs Allergies Allergy/AdvReac Type Severity Reaction Status Date / Time mold Allergy Severe Anaphylactic Verified 01/10/22 12:17 Shock Vital Signs Vital Signs - 24 hr 05/24/22 05:45 05/24/22 06:00 05/24/22 06:15 Temperature 97.6 F Pulse Rate 95 99 82 Blood Pressure 118/81 123/89 126/86 Oxygen Delivery 05/24/22 06:30 05/24/22 05:30 05/24/22 05:47 Temperature Pulse Rate 87 95 Blood Pressure 123/87 118/81 Oxygen Delivery Room Air Exam GI: Inspection: normal to inspection Percussion: Yes normal to percussion Auscultation: normal bowel sounds : External Female Exam: normal external appearance Speculum Exam - Vagina: normal appearance of the vagina Speculum Exam - Cervix: normal appearance of the cervix ( cervix /. AROM clear. FHTs reassuring.) Bimanual exam- vagina & uterus: enlarged H&P: Results Labs Labs: Short CBC 05/24/22 Range/Units 05:34 WBC 6.8 (4.5-10.0) K/mm3 Hgb 12.1 (12.0-15.0) g/dL Hct 37.7 (37.0-47.0) % Plt Count 134 L (150-375) k/mm3 Assessment and Plan Assessment and plan (1) Term : Code(s): Z34.90 - Encounter for supervision of normal , unspecified, unspecified trimester Status: Acute Plan medical induction of labor. Spontaneous vaginal delivery expected. She has an epidural candidate
--- NOTE | 2022-05-24 08:02 | WPDANESEPP ---
Anes - Eval Pre Procedure Procedure: Labor pain management Date/Time: 05/24/22 08:02 Preop Diagnosis: Pain during labor Pre Op Diagnosis: IOL Patient Data Age: 31 Gender: F Height: 1.68 m Weight: 83.5 kg Last Vital Signs Temp 36.4 C 05/24/22 06:00 Pulse 82 05/24/22 08:00 BP 123/82 05/24/22 08:00 O2 Del Method Room Air 05/24/22 05:30 Allergies Allergy/AdvReac Type Severity Reaction Status Date / Time mold Allergy Severe Anaphylactic Verified 01/10/22 12:17 Shock Home Medications Medication Instructions Recorded Confirmed Type magnesium 200 mg tablet 200 mg PO DAILY 03/08/20 05/24/22 History albuterol sulfate 90 mcg/actuation 2 inh inhalation Q4H PRN shortness 01/03/22 05/24/22 Rx aerosol inhaler of breath or wheezing #8.5 grams levocetirizine 5 mg tablet See Rx Instructions .Route 01/03/22 05/24/22 Rx .COMPLEX #90 tabs cholecalciferol (vitamin D3) 50 50 mcg PO DAILY 05/05/22 05/05/22 History mcg (2,000 unit) capsule (Vitamin D3) prenat.vits,tanya,uxa-vbur-axofg 1 tablet PO DAILY 05/05/22 05/05/22 History montelukast 10 mg tablet See Rx Instructions .Route 05/08/22 05/24/22 Rx .COMPLEX #90 tabs Laboratory Tests 05/24/22 05/24/22 05/24/22 05:34 05:34 05:34 WBC 6.8 K/mm3 K/mm3 (4.5-10.0) RBC 4.51 M/mm3 M/mm3 (4.2-5.4) Hgb 12.1 g/dL g/dL (12.0-15.0) Hct 37.7 % % (37.0-47.0) MCV 83.6 fl fl (80-100) MCH 26.8 pg pg (26-34) MCHC 32.1 g/dl g/dl (32-36) RDW 14.0 % % (11.5-14.5) Plt Count 134 k/mm3 L k/mm3 (150-375) MPV 13.8 fl H fl (7.4-10.4) Immature Gran % (Auto) 0.3 % % (0-0.5) Neut % (Auto) 69.1 % % (45.5-73.1) Lymph % (Auto) 23.0 % % (18.3-44.2) [place] % (Auto) 5.6 % % (2.6-8.5) Eos % (Auto) 1.6 % % (0-4.4) Baso % (Auto) 0.4 % % (0.2-1.2) Lymph # (Auto) 1.56 K/mm3 K/mm3 (0.9-3.2) [place] # (Auto) 0.4 K/mm3 K/mm3 (0.1-0.6) Eos # (Auto) 0.1 K/mm3 K/mm3 (0-0.3) Baso # (Auto) 0.0 K/mm3 K/mm3 (0.0-0.1) Abs Immat Gran (auto) 0.02 K/mm3 K/mm3 (0.00-0.031) Absolute Neuts (auto) 4.7 K/mm3 K/mm3 (1.3-6.7) Absolute Nucleated RBC 0.0 K/mm3 K/mm3 (0.0-0.012) Nucleated RBC % 0.0 % % (0.0-0.2) % Immature Plt Fraction 18.7 % H % (0.9-11.2) RPR Pending HIV 1&2 Ab/P24 Ag 4thGn Negative (Negative) Blood Type Antibody Screen 05/24/22 05:34 WBC RBC Hgb Hct MCV MCH MCHC RDW Plt Count MPV Immature Gran % (Auto) Neut % (Auto) Lymph % (Auto) [place] % (Auto) Eos % (Auto) Baso % (Auto) Lymph # (Auto) [place] # (Auto) Eos # (Auto) Baso # (Auto) Abs Immat Gran (auto) Absolute Neuts (auto) Absolute Nucleated RBC Nucleated RBC % % Immature Plt Fraction RPR HIV 1&2 Ab/P24 Ag 4thGn Blood Type A Positive Antibody Screen Negative Patient hx anesthesia problems: none Family hx anesthesia problems: none Results Review: All pre-operative results and documents have been reviewed as part of the pre-operative evaluation. [facility] Past Medical History Medical History Chronic migraine w/o aura w/o status migrainosus, not intractable Healthy adult IUD mechanical complication lost IUD. laparoscopically removed from omentum. Miscarriage within last 12 months Martin's neuroma of left foot Recurrent maxillary sinusitis Family History Family History Grandparent Diabetes mellitus Family history of malignant neoplasm of breast Acute myocardial infar
[2022-05-24 10:22] LABS: Rapid Plasma Reagin Non-Reactive (NonReactive)
[2022-05-24] MEDS: ONDANSETRON INJ 4 MG/2 ML VIAL IV PUSH ×2 (13:02→18:56)
--- NOTE | 2022-05-24 16:31 | PM.OBPNLAB ---
Pain Control Date/time seen: 05/24/22 16:31 Pain control: tolerating well and epidural Pelvic Exam Dilation (cm): 5 station: -2 Amniotic membrane status: Ruptured Contractions Monitor mode: Internal Contraction frequency: 3
--- NOTE | 2022-05-24 18:58 | PM.OBPNLAB ---
Pain Control Date/time seen: 05/24/22 18:58 Pain control: tolerating well and epidural Pelvic Exam Dilation (cm): 6 Effacement (%): 100 station: -2 Amniotic membrane status: Ruptured Contractions Monitor mode: Internal Contraction frequency: 3
--- NOTE | 2022-05-24 20:08 | PM.OBPRVD ---
OB - Delivery Note Procedure Delivery date: 05/24/22 Procedure: mil Events: Elective Induction of Labor Induction method: AROM Delivery augmentation: Pitocin Delivery monitor: External FHT and Internal Uterine Route of delivery: Episiotomy description: None Laceration Description: None Specimen: No Quantitative Blood Loss (ml): 59 Anesthesia type: Epidural Disposition: PACU Baby Date of : 05/24/22 Time of : 20:00 Weeks of gestation at delivery: 39 Infant gender: Male presentation: vertex position: Right Occiput Anterior Placenta delivery description: Spontaneous Cord Vessel Description: 3 Vessels score one minute: 9 score five minutes: 9
[2022-05-24] MEDS: OXYTOCIN 30 UNITS/NS 500 ML 30 UNITS/500 ML BAG 125 UNITS IV CONT (20:32)
[2022-05-25] MEDS: IBUPROFEN 600 MG TABLET PO ×3 (03:51→17:46)
--- NOTE | 2022-05-25 06:50 | PM.OBPNVD ---
OB - PN: Subj Subjective Date/time seen: 05/25/22 06:50 Patient comments: no complaints and pain well controlled baby status: doing well and nursing well OB - PN: Obj Data Labs CBC & Chem 7: 05/24/22 05:34 Labs: Laboratory Results - last 24 hr 05/24/22 05/24/22 05:34 05:34 RPR Non-reactive Antibody Screen Negative OB - PN A/P Assessment and Plan (1) Term : Code(s): Z34.90 - Encounter for supervision of normal , unspecified, unspecified trimester Status: Acute Plan day: 1 Plan: routine care, discharge home and follow up 6 weeks Time Spent With Patient Time: Total time spent is greater than 50% in coordination of care (as documented) at patient's floor/unit and/or counseling patient: Time with patient: less than 15 minutes
--- NOTE | 2022-05-25 06:50 | PM.DS ---
DS: Admitting Diagnosis Discharge Date 05/25/2022 Admitting Diagnosis term DS: Discharge Diagnosis Discharge Diagnosis (1) Term : Code(s): Z34.90 - Encounter for supervision of normal , unspecified, unspecified trimester Status: Acute DS: Summary Hospital Course Reason for hospitalization: medical induction of labor Hospital Course: this is a 31-year-old 3 para 2 admitted for induction at term. She underwent spontaneous vaginal delivery which was unremarkable. Her course was unremarkable. Her 24hour course she remained afebrile. She was up, voiding without difficulty, ambulating, generally without complaints. Time Spent with Patient Time attestation: Total time spent providing and/or coordinating discharge services: DS: Data Data Completed and Pending Labs on day of discharge: Labs from last 24 hours 05/25/22 05/24/22 05/24/22 03:49 05:34 05:34 Hgb Pending Hct Pending RPR Non-reactive Antibody Screen Negative Discharge Plan Discharge Attending physician on discharge: Darci Ayala Discharging Clinician: Darci Ayala Patient Disposition: Home, Self-Care Activity: may shower, no straining and pelvic rest Diet: heart healthy Wound Care Instructions: follow printed instructions Patient Instructions: Antibiotic Form Stand Alone Forms: General Discharge Information Follow-up/Referrals: Darci Ayala MD [Physician] - Discharge Medications: Continued magnesium 200 mg Tablet 200 mg PO DAILY #2 Tablet 1 tablet PO DAILY cholecalciferol (vitamin D3) [Vitamin D3] 50 mcg (2,000 unit) Capsule 50 mcg PO DAILY albuterol sulfate 90 mcg/actuation HFA aerosol inhaler 2 inh inhalation Q4H PRN (Reason: shortness of breath or wheezing) Qty: 8.5 0RF levocetirizine 5 mg tablet See Rx Instructions .ROUTE .COMPLEX Qty: 90 3RF Dose Instruction: Take 1 tablet by mouth once daily Rx Instructions: Take 1 tablet by mouth once daily montelukast 10 mg tablet See Rx Instructions .ROUTE .COMPLEX Qty: 90 3RF Dose Instruction: Take 1 tablet by mouth once daily Rx Instructions: Take 1 tablet by mouth once daily Date of admission: 05/24/22 05:04 Primary Care Provider: Priyanka Toney Admitting Provider: Darci Ayala Attending physician on admission: Darci Ayala Condition: Stable
[2022-05-25 07:30] LABS: Hematocrit 32.1 % (37.0-47.0); Hemoglobin 10.6 g/dL (12.0-15.0)
--- NOTE | 2022-05-25 08:01 | WPDANLDPN2 ---
Anes-Prog Note L&D Date/Time: 05/25/22 08:01 Comfortable throughout: labor and delivery Neuraxial method: epidural Epidural/Spinal procedure site: clean & non-tender Neuro status: Neuro function grossly intact. Cardiovascular status: normal Respiratory status: normal Airway patency: baseline Mental status: baseline Post-Op hydration status: normal Vital Signs: Last Vital Signs Temp 36.6 C 05/24/22 23:00 Pulse 80 05/24/22 23:00 Resp 16 05/24/22 23:00 BP 107/70 05/24/22 23:00 Pulse Ox 100 05/24/22 19:58 O2 Del Method Room Air 05/24/22 05:30 Pain score (VAS): 2 I/O: Intake & Output 05/24/22 05/25/22 05/25/22 23:59 07:59 15:59 Intake Total 500 Output Total 70 Balance 430 Post-procedural complaints: none Patient feedback: Patient satisfied with anesthetic care.
[2022-05-25] MEDS: ACETAMINOPHEN 325 MG TABLET 650 MG PO ×2 (08:03→15:06)
[2022-05-25] MEDS: MULTIVIT/MIN/PREN/FOL AC/IRON TABLET 1 TAB PO (08:03)
[2022-05-25] MEDS: DOCUSATE SODIUM 100 MG CAPSULE PO ×2 (08:03→17:46)
[2022-05-25 08:35] VITALS: BP 114/76; PULSE 76; RESP 16; TEMP 36.2; O2SAT 100
--- NOTE | 2022-05-25 10:29 | PC.NURSE ---
0937 - Introductions were made, then consulted with patient to assess needs related to . Mother led the conversation with her?plans to feed?her infant and the?experience so far. Mother verbalizes she is able to independently latch infant and denies any nipple discomfort and is responsively . Infant is currently meeting outcomes for weight, output, jaundice and feeding frequencies of 8-12 times in 24 hours. Mother declines any additional assistance/education at this time. Resources provided for inpatient and outpatient services using a resource guide and mom/baby guide. Mother voiced understanding of information and will call if there is a request for assistance. Reported to primary RN.
[2022-05-25 12:19] VITALS: BP 117/71; PULSE 81; RESP 18; TEMP 36.7; O2SAT 99
[2022-05-25 15:00] VITALS: BP 118/75; PULSE 80; RESP 16; TEMP 37.1; O2SAT 100
[2022-05-25 19:00] VITALS: BP 110/73; PULSE 81; RESP 16; TEMP 36.4
--- NOTE | 2022-05-26 06:57 | PM.OBPNVD ---
OB - PN: Subj Subjective Date/time seen: 05/26/22 06:57 Patient comments: no complaints and pain well controlled baby status: doing well and nursing well OB - PN: Obj Data Labs CBC & Chem 7: 05/25/22 07:18 Labs: Laboratory Results - last 24 hr 05/25/22 07:18 Hgb 10.6 L Hct 32.1 L OB - PN A/P Assessment and Plan (1) Term : Code(s): Z34.90 - Encounter for supervision of normal , unspecified, unspecified trimester Status: Acute Plan day: 2 Plan: routine care, discharge home and follow up 6 weeks Time Spent With Patient Time: Total time spent is greater than 50% in coordination of care (as documented) at patient's floor/unit and/or counseling patient: Time with patient: less than 15 minutes
[2022-05-26 08:00] VITALS: BP 117/75; PULSE 84; RESP 16; TEMP 37.2; O2SAT 99
[2022-05-26] MEDS: MULTIVIT/MIN/PREN/FOL AC/IRON TABLET 1 TAB PO (08:42)
[2022-05-26] MEDS: IBUPROFEN 600 MG TABLET PO (08:42)
--- NOTE | 2022-05-26 10:39 | PC.NURSE ---
Patient viewed the discharge video Mother & Baby Care, The First Two Weeks . Patient was given the opportunity and encouraged to ask questions. Patient verbalized understanding of information shared and has been given the mother/baby guide for home reference.
[2022-05-27 09:53] VITALS: BP 112/71; PULSE 96; RESP 16; TEMP 37.1; O2SAT 100
== END 2022-05-26 11:50 | disposition home or self-care (01) | DRG 807 ==
LOC: ANHLDR 05:09 → ANHOB2 22:57
PROVIDERS: Admitting Provider Obstetrics & Gynecology; PCP Family Medicine; Visit Provider Obstetrics & Gynecology
DX: O76 Abnormality in fetal heart rate and rhythm complicating labor and delivery (principal); Z37.0 Single live birth; Z3A.39 39 weeks gestation of pregnancy
CPT/HCPCS: 36415; 85014; 85018; 85025; 85055; 86592; 86703; 86850; 86900; 86901; A9270; G0432; J0131; J2405; J2590; J2795; J7120

== ENCOUNTER 2023-01-09 08:42 | Emergency (ER) | payer OTHER, SELFPAY ==
--- NOTE | 2023-01-09 08:53 | ED.URI ---
HPI - URI/Sore Throat General Chief Complaint: Upper Respiratory Infection Stated Complaint: sore throat Source: patient and RN notes reviewed History of Present Illness HPI Narrative: 32-year-old female presents urgent care sore throat and fever. Patient states this all started yesterday morning and states her fever reached 104.1 F. patient reports body aches, especially bilateral lower back pain. Denies any vomiting, congestion, chest pain, or shortness of breath. Patient did take Tylenol for her fever. Some parts of this dictation were generated by voice recognition software and may contain typographical and/or grammatical inaccuracies. Related Data Home Medications Medication Instructions Recorded Confirmed cholecalciferol (vitamin D3) 50 50 mcg PO DAILY 05/05/22 01/09/23 mcg (2,000 unit) capsule (Vitamin D3) Allergies Allergy/AdvReac Type Severity Reaction Status Date / Time mold Allergy Severe Anaphylactic Verified 01/09/23 08:52 Shock Review of Systems Review of Systems: CONSTITUTIONAL: Fever EYES: Denies visual changes, redness, or discharge. ENT: sore throat CARDIOVASCULAR: Denies chest pain, palpitations, or edema. RESPIRATORY: Denies cough or dyspnea. GASTROINTESTINAL: Denies abdominal pain, nausea, vomiting, or diarrhea. GENITOURINARY: Denies dysuria or hematuria. SKIN: Denies rash or itching. MUSCULOSKELETAL: myalgia. NEUROLOGIC: Denies headache, numbness, or weakness. [facility] Past Medical History Medical History (Updated 01/09/23 @ 09:09 by January Vasquez, JORDIN) Chronic migraine w/o aura w/o status migrainosus, not intractable Fatigue IUD mechanical complication lost IUD. laparoscopically removed from omentum. Miscarriage within last 12 months Martin's neuroma of left foot Palpitations Recurrent maxillary sinusitis Sinusitis Term Vaginal discharge during Worsening headaches Family History Family History Grandparent Diabetes mellitus Family history of malignant neoplasm of breast Acute myocardial infarction Social History Social History (Updated 10/03/22 @ 16:27 by Ren Xiong MA) Smoking status: Never smoker Alcohol intake: never Substance use: never Lack of Transportation: No Lack of Food: Never True Current Housing: I Have Housing Concerned About Future Housing: No Difficulty Paying Gas/Electric Bills: No Difficulty Paying for Meds: No Currently Unemployed: No Education: Associate Degree Difficulty w/ Childcare or Family Care: No Living arrangements: with family Sexual Orientation (if Verbalized by the Patient): Straight or Heterosexual Spiritual care concerns: No Comments At the time of my signature, I reviewed and agree with the nursing past medical, surgical, social, and family history. There is no relevant family history pertinent to the patient complaint. Exam Narrative: GENERAL: This is a well-nourished, well-developed patient, in no apparent distress. HEAD: normocephalic, atraumatic. EYES: PERRL. Sclera clear/white. Vision is grossly intact. EARS: External ears normal, auditory canals clear and without drainage, TMs normal without perforation. Hearing grossly intact. NOSE: External nose normal with no obvious nasal discharge, nares without redness, no rhinorrhea. THROAT: Mucous membranes moist, posterior pharynx erythemic. No exudate. NECK: Neck supple, non-tender without lymphadenopathy, masses or thyromegaly. CARDIOVASCULAR: Regular rate and rhythm without murmurs, gallops, or rubs. RESPIRATORY: Clear to auscultation. Breath sounds equal bilaterally. No wheezes, rales, or rhonchi. GASTROINTESTINAL: Abdomen soft, non-tender, nondistended. Bowel sounds are active. No hepato-splenomegaly, or palpable masses. No guarding. SKIN: warm, intact with no suspicious lesions or rash, good texture and turgor. NEURO: awake, alert
[2023-01-09 08:59] VITALS: BP 113/77; PULSE 104; RESP 16; TEMP 36.6; O2SAT 100
== END 2023-01-09 09:15 | disposition home or self-care (01) ==
PROVIDERS: Emergency Provider Nurse Practitioner Family; PCP Family Medicine
DX: J02.0 Streptococcal pharyngitis (principal)
CPT/HCPCS: 87880; 99213; G0463

== ENCOUNTER 2023-01-29 08:36 | Emergency (ER) | payer SELFPAY ==
--- NOTE | 2023-01-29 08:41 | ED.URI ---
HPI - URI/Sore Throat General Chief Complaint: Upper Respiratory Infection Stated Complaint: cough,congestion, sore throat Source: patient and RN notes reviewed History of Present Illness HPI Narrative: 32 yo F presents to urgent care with complaints of congestion, cough, sore throat, left ear discomfort, and chest tightness. Pt states these have been going on for 2 days. States it feels like a cold but she wanted to make sure b/c she starts a new job tomorrow. Denies any vomiting or diarrhea, fevers, or chills. Related Data Home Medications Medication Instructions Recorded Confirmed cholecalciferol (vitamin D3) 50 50 mcg PO DAILY 05/05/22 01/09/23 mcg (2,000 unit) capsule (Vitamin D3) magnesium 2 tablet PO DAILY 01/29/23 01/29/23 [id number] 1 tablet PO DAILY 01/29/23 01/29/23 Allergies Allergy/AdvReac Type Severity Reaction Status Date / Time mold Allergy Severe Anaphylactic Verified 01/29/23 08:44 Shock Review of Systems Review of Systems: Pertinent positives and pertinent negatives per HPI. [facility] Past Medical History Medical History (Updated 01/29/23 @ 09:10 by January Vasquez, JORDIN) Chronic migraine w/o aura w/o status migrainosus, not intractable Fatigue IUD mechanical complication lost IUD. laparoscopically removed from omentum. Miscarriage within last 12 months Martin's neuroma of left foot Palpitations Recurrent maxillary sinusitis Sinusitis Term Vaginal discharge during Worsening headaches Family History Family History Grandparent Diabetes mellitus Family history of malignant neoplasm of breast Acute myocardial infarction Social History Social History (Updated 10/03/22 @ 16:27 by Ren Xiong MA) Smoking status: Never smoker Alcohol intake: never Substance use: never Lack of Transportation: No Lack of Food: Never True Current Housing: I Have Housing Concerned About Future Housing: No Difficulty Paying Gas/Electric Bills: No Difficulty Paying for Meds: No Currently Unemployed: No Education: Associate Degree Difficulty w/ Childcare or Family Care: No Living arrangements: with family Sexual Orientation (if Verbalized by the Patient): Straight or Heterosexual Spiritual care concerns: No Comments At the time of my signature, I reviewed and agree with the nursing past medical, surgical, social, and family history. There is no relevant family history pertinent to the patient complaint. Exam Narrative: GENERAL: This is a well-nourished, well-developed patient, in no apparent distress. HEAD: normocephalic, atraumatic. EYES: PERRL. Sclera clear/white. Vision is grossly intact. EARS: External ears normal, auditory canals clear and without drainage, TMs normal without perforation. Hearing grossly intact. NOSE: External nose normal with no obvious nasal discharge, nares without redness, no rhinorrhea. THROAT: Mucous membranes moist, posterior pharynx erythemic. No exudate noted. NECK: Neck supple, non-tender without lymphadenopathy, masses or thyromegaly. CARDIOVASCULAR: Regular rate and rhythm without murmurs, gallops, or rubs. RESPIRATORY: Clear to auscultation. Breath sounds equal bilaterally. No wheezes, rales, or rhonchi. GASTROINTESTINAL: Abdomen soft, non-tender, nondistended. Bowel sounds are active. No hepato-splenomegaly, or palpable masses. No guarding. SKIN: warm, intact with no suspicious lesions or rash, good texture and turgor. NEURO: awake, alert, and oriented to person, place and time. There were no obvious focal neurologic abnormalities. Course Course Level of Care: Express Care Visit Vital Signs Vital signs: reviewed MDM - URI/Sore Throat MDM Narrative Medical decision making narrative: Rapid strep is negative in the office; however we will send to the lab for confirmation; there is a small percentage chance
[2023-01-29 08:50] VITALS: BP 109/82; PULSE 80; RESP 16; TEMP 36.6; O2SAT 100
== END 2023-01-29 09:13 | disposition home or self-care (01) ==
PROVIDERS: Emergency Provider Nurse Practitioner Family; PCP Family Medicine
DX: J02.9 Acute pharyngitis, unspecified (principal); J06.9 Acute upper respiratory infection, unspecified; Z20.822 Contact with and (suspected) exposure to COVID-19
CPT/HCPCS: 87081; 87426; 87880; 99213; C9803; G0463

== ENCOUNTER 2023-07-19 09:02 | Outpatient (CLI) | payer BC, SELFPAY ==
[2023-07-19 13:55] LABS: Basophils Absolute Auto 0.1 K/mm3 (0.0-0.1); Basophils Percent Auto 0.6 % (0.2-1.2); Eosinophils Absolute Auto 0.2 K/mm3 (0-0.3); Eosinophils Percent Auto 2.4 % (0-4.4); Hematocrit 41.7 % (37.0-47.0); Hemoglobin 13.2 g/dL (12.0-15.0); Immature Granulocyte Absolute 0.01 K/mm3 (0.00-0.031); Immature Granulocyte Percent A 0.1 % (0-0.5); Immature Platelet Fraction Pct 12.1 % (0.9-11.2); Lymphocytes Absolute Auto 1.38 K/mm3 (0.9-3.2); Lymphocytes Percent Auto 17.6 % (18.3-44.2); Mean Corpuscular HGB Conc 31.7 g/dl (32-36); Mean Corpuscular Hemoglobin 27.7 pg (26-34); Mean Corpuscular Volume 87.6 fl (80-100); Monocytes Absolute Auto 0.5 K/mm3 (0.1-0.6); Monocytes Percent Auto 6.6 % (2.6-8.5); Neutrophils Absolute Auto 5.7 K/mm3 (1.3-6.7); Neutrophils Percent Auto 72.7 % (45.5-73.1); Platelet Count Result 198 k/mm3 (150-375); Red Blood Count 4.76 M/mm3 (4.2-5.4); Red Cell Distribution Width 12.8 % (11.5-14.5); White Blood Count 7.8 K/mm3 (4.5-10.0)
[2023-07-19 17:35] LABS: Cholesterol 165 mg/dL (0-200); HDL Direct 38 mg/dL; Triglycerides 64 mg/dL (<150)
[2023-07-19 17:46] LABS: LDL Cholesterol Direct 101 mg/dL
[2023-07-19 18:16] LABS: Thyroid Stimulating Hormone 0.376 uIU/mL (0.465-4.680)
[2023-07-19 19:15] LABS: Vitamin D 25 Hydroxy 43.5 ng/mL
== END 2023-07-19 09:03 | disposition home or self-care (01) ==
LOC: ANHGOSHLAB 09:04
PROVIDERS: PCP Family Medicine; Visit Provider Family Medicine
DX: R53.83 Other fatigue (principal)
CPT/HCPCS: 36415; 80061; 82306; 82607; 82728; 84443; 85025; 85055